=== PATIENT | male | born 2000 | race Two or more races ===

== ENCOUNTER 2024-10-29 16:29 | Emergency (ER) | payer SELFPAY ==
[~2024-10-29] VITALS: Ht 180.3 cm; Wt 107.0 kg
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
[2024-10-29] MEDS ORDERED: HYDR-4902 PO (18:35)
[2024-10-29] MEDS: HYDROcodone-ACET 10/325MG TAB PO ONE (18:36)
[2024-10-29 18:53] VITALS: BP 159/91; PULSE 90; RESP 18; TEMP 98.2; O2SAT 96
== END 2024-10-29 18:55 | disposition home or self-care (01) ==
LOC: ER 16:33
DX: S42.211A Unspecified displaced fracture of surgical neck of right humerus, initial encounter for closed fracture (principal); S80.11XA Contusion of right lower leg, initial encounter; V89.2XXA Person injured in unspecified motor-vehicle accident, traffic, initial encounter; Y93.89 Activity, other specified; Y92.89 Other specified places as the place of occurrence of the external cause; Y99.8 Other external cause status
CPT/HCPCS: 29105; 73030